=== PATIENT | female | born 1985 | race Two or more races ===

== ENCOUNTER 2023-10-24 18:05 | Emergency (ER) | payer OTHER ==
[~2023-10-24] VITALS: Ht 177.8 cm; Wt 95.4 kg
[2023-10-24] MEDS: KETOROLAC TROMETH 60MG/2ML VIAL IM ONE (20:01)
[2023-10-24 20:04] VITALS: BP 112/69; PULSE 100; RESP 18; O2SAT 97
== END 2023-10-24 20:19 | disposition home or self-care (01) ==
LOC: ER 18:05
DX: S00.83XA Contusion of other part of head, initial encounter (principal); S80.212A Abrasion, left knee, initial encounter; V89.2XXA Person injured in unspecified motor-vehicle accident, traffic, initial encounter; Y93.89 Activity, other specified; Y92.89 Other specified places as the place of occurrence of the external cause; Y99.8 Other external cause status
CPT/HCPCS: 70450; 73562; 96372; 99285; J1885

== ENCOUNTER 2023-11-03 18:22 | Emergency (ER) | payer OTHER ==
[~2023-11-03] VITALS: Ht 177.8 cm; Wt 99.8 kg
[2023-11-03 20:36] VITALS: BP 119/72; PULSE 82; RESP 18; O2SAT 100
[2023-11-03] MEDS: IBUPROFEN 800 MG TAB PO ONE (21:09)
== END 2023-11-03 22:23 | disposition home or self-care (01) ==
LOC: ER 18:22
DX: S00.83XA Contusion of other part of head, initial encounter (principal); S80.02XA Contusion of left knee, initial encounter; V29.99XA Rider (driver) (passenger) of other motorcycle injured in unspecified traffic accident, initial encounter; Y93.89 Activity, other specified; Y92.89 Other specified places as the place of occurrence of the external cause; Y99.8 Other external cause status

== ENCOUNTER 2023-12-16 11:27 | Emergency (ER) | payer MEDICAID, OTHER ==
[~2023-12-16] VITALS: Ht 177.8 cm; Wt 101.2 kg
[2023-12-16 12:12] LABS: Basophils # (auto) 0 10 ^3/uL (0-0.2); Eosinophils # (auto) 0.1 10 ^3/uL (0-0.8); Hemoglobin 8.2 g/dL (12.2-16.2); Monocytes # (auto) 0.5 10 ^3/uL (0-1.3)
[2023-12-16 12:16] LABS: Basophils % (auto) 0.7 % (0.0-2.0); Eosinophils % (auto) 0.9 % (0.0-7.0); Hematocrit 27.8 % (36.0-46.0); Lymphocytes # (auto) 0.9 10 ^3/uL (0.4-5.4); Lymphocytes % (auto) 14.6 % (10.0-50.0); Mean Corpuscular Hemoglobin 18.7 pg (28.0-32.0); Mean Corpuscular Hgb Conc. 29.5 g/dL (32.0-36.0); Mean Corpuscular Volume 63.2 fL (80.0-100.0); Monocytes % (auto) 7.8 % (0.0-12.0); Neutrophils # (auto) 4.8 10 ^3/uL (1.6-8.6); Nucleated Red Blood Cells % 0.2 %; Red Blood Cells 4.39 10^6/uL (4.0-5.20); Red Cell Distribution Width 19.2 % (11.8-14.3); White Blood Cell 6.4 10^3/uL (4.4-10.8)
[2023-12-16 12:28] LABS: Alanine Aminotransferase 15 U/L (7-40); Albumin 4.5 g/dL (3.2-4.8); Alkaline Phosphatase 76 U/L (46-116); Anion Gap 2 (5-15); Aspartate Aminotransferase 11 U/L (13-40); BUN/Creatinine Ratio 17.3 (10.0-20.0); Blood Urea Nitrogen 9 mg/dL (9-23); Calcium 9.4 mg/dL (8.5-10.1); Carbon Dioxide 32 mmol/L (20-30); Chloride 106 mmol/L (98-107); Glucose 128 mg/dL (74-106); Potassium 3.6 mmol/L (3.5-5.1); Sodium 140 mmol/L (136-145)
[2023-12-16 12:29] LABS: Bilirubin, Total 0.4 mg/dL (0.2-1.0); Total Protein 7.2 g/dL (5.7-8.2)
[2023-12-16] MEDS: IBUPROFEN 600 MG TAB PO ONE (12:33)
[2023-12-16 12:44] LABS: Hypochromia Moderate; Platelet Estimate Adequate
[2023-12-16 12:46] LABS: Urine Bacteria None Seen /hpf (None Seen)
[2023-12-16 13:01] LABS: Urine Blood Negative /uL (Negative); Urine Clarity Clear (Clear); Urine Color Yellow (Yellow); Urine Protein, UAD TRACE (Negative); Urine Specific Gravity 1.027 (1.001-1.035); Urine Urobilinogen Normal (Negative); Urine WBC 1 /hpf (0 - 5); Urine pH 7.5 (5.0-9.0)
[2023-12-16 15:00] VITALS: BP 107/72; PULSE 86; RESP 16; TEMP 98; O2SAT 98
== END 2023-12-16 15:04 | disposition home or self-care (01) ==
LOC: ER 11:27
DX: R09.1 Pleurisy (principal); R07.89 Other chest pain
CPT/HCPCS: 36415; 71045; 80053; 81001; 84484; 85025; 85379; 93005

== ENCOUNTER 2025-04-12 18:42 | Emergency (ER) | payer OTHER ==
[~2025-04-12] VITALS: Ht 177.8 cm; Wt 100.1 kg
--- NOTE | 2025-04-12 19:26 | ECG ---
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
[2025-04-12] MEDS: KETOROLAC TROMETH 30 MG/ML 1ML VIAL IM ONE (21:44)
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
[2025-04-12] MEDS ORDERED: CYCL-837 PO (22:40)
[2025-04-12] MEDS ORDERED: IBUP-1455 PO (22:40)
[2025-04-12 23:37] VITALS: BP 107/78; TEMP 98.6; O2SAT 96
[2025-04-12 23:41] VITALS: PULSE 80; RESP 20
== END 2025-04-12 22:40 | disposition home or self-care (01) ==
LOC: ER 18:43
DX: S20.219A Contusion of unspecified front wall of thorax, initial encounter (principal); M25.512 Pain in left shoulder; M54.9 Dorsalgia, unspecified; Z90.89 Acquired absence of other organs; V43.52XA Car driver injured in collision with other type car in traffic accident, initial encounter; Y93.I9 Activity, other involving external motion; Y92.488 Other paved roadways as the place of occurrence of the external cause; Y99.8 Other external cause status
CPT/HCPCS: 71045; 93005; 96372; 99283; J1885